=== PATIENT | male | born 1950 | race Caucasian/White ===

== ENCOUNTER 2017-07-04 09:06 | Inpatient (IN) | payer BC ==
[2017-07-04] MEDS ORDERED: BACITRACIN 50000 UNITS INJ (10:33)
[2017-07-04] MEDS ORDERED: POLYMYXIN B 500000 UNIT INJ (10:41)
[2017-07-04] MEDS ORDERED: BUPIVACAINE 0.75%/DEXT (SPINAL) 2 ML INJ (10:42)
[2017-07-04] MEDS ORDERED: CEFAZOLIN 2 GM/50 ML (PMX) 50 ML (FOR WT < 120 KG) IVPB (12:00)
[2017-07-04] MEDS: TRANEXAMIC ACID 1,000 MG in D5W 100 ML AT INCISION X1 IVPB (12:24)
[2017-07-04] MEDS ORDERED: ZOLPIDEM 5 MG TAB PO (12:30)
[2017-07-04] MEDS ORDERED: TRIMETHOBENZAMIDE 100 MG/ML VIAL IM (12:30)
[2017-07-04] MEDS ORDERED: SENNA/DOCUSATE NA (8.6MG/50MG) TAB PO (12:30)
[2017-07-04] MEDS ORDERED: NA PHOSPHATE/BIPHOS 133 ML ENEMA PR (12:30)
[2017-07-04] MEDS ORDERED: BISACODYL 10 MG SUPP PR (12:30)
[2017-07-04] MEDS ORDERED: BETHANECHOL 25 MG TAB PO (12:30)
[2017-07-04] MEDS ORDERED: MAGNESIUM HYDROXIDE 30ML CUP PO (12:30)
[2017-07-04] MEDS ORDERED: KETOROLAC 15 MG INJ INJ (12:30)
[2017-07-04] MEDS ORDERED: NACL 0.9% 3 ML SYG IV (12:30)
[2017-07-04] MEDS ORDERED: DIPHENHYDRAMINE 50 MG INJ IV (12:30)
[2017-07-04] MEDS ORDERED: NALOXONE (0.4 MG/ML) INJ IV (12:30)
[2017-07-04] MEDS ORDERED: CEFAZOLIN 1 GM INJ (14:06)
[2017-07-04] MEDS ORDERED: LIDOCAINE 100 MG SYRINGE (14:06)
[2017-07-04] MEDS ORDERED: SUCCINYLCHOLINE CHLORIDE 100 MG/5 ML SYG IV (14:06)
[2017-07-04] MEDS ORDERED: SUGAMMADEX SODIUM 200 MG/2 ML VIAL IV (14:06)
[2017-07-04] MEDS ORDERED: PROPOFOL 20 ML (14:06)
[2017-07-04] MEDS ORDERED: ROCURONIUM 50 MG INJ (14:06)
[2017-07-04] MEDS: BACITRACIN 50000 UNITS INJ IRR (14:21)
[2017-07-04] MEDS: POLYMYXIN B 500000 UNIT INJ IRR (14:21)
[2017-07-04] MEDS: TRANEXAMIC ACID 1,000 MG in D5W 100 ML AT CLOSURE X1 IVPB (14:23)
[2017-07-04] MEDS: ONDANSETRON 4 MG INJ IV ×3 (14:59→20:17)
[2017-07-04] MEDS ORDERED: MEPERIDINE 25 MG INJ IV (15:00)
[2017-07-04] MEDS ORDERED: HYDROmorphONE (0.2 MG/ML) 10ML SYG IV ×3 (15:00)
[2017-07-04] MEDS ORDERED: FENTAnyl 50 MCG/ML VIAL IV ×2 (15:00)
[2017-07-04] MEDS: METOCLOPRAMIDE 10 MG INJ IV (15:02)
[2017-07-04] MEDS: ASPIRIN (EC) 325 MG TAB PO (15:05)
[2017-07-04] MEDS: CEFAZOLIN 1 GM/50 ML (PMX) 50 ML IVPB ×2 (15:05→23:30)
[2017-07-04] MEDS: DOCUSATE SODIUM 100 MG CAP PO (15:06)
[2017-07-04] MEDS: SOD CHLORIDE 0.9% 1,000 ML IV (15:06)
[2017-07-04] MEDS: DIPHENHYDRAMINE 50 MG INJ IV (15:09)
[2017-07-04] MEDS ORDERED: ONDANSETRON 4 MG INJ IV (15:30)
[2017-07-04] MEDS ORDERED: LORAZEPAM 0.5 MG TAB PO (15:30)
[2017-07-04] MEDS ORDERED: HYDROCODONE/APAP (10/325) TAB PO (15:30)
[2017-07-04] MEDS ORDERED: morphine 2 MG INJ IV (15:30)
[2017-07-04] MEDS: ACETAMINOPHEN 1000MG/100ML IV 100 ML IVPB (15:57)
[2017-07-04] MEDS ORDERED: morphine LIQ (10 MG/5 ML) CUP PO (16:00)
[2017-07-04] MEDS: ATORVASTATIN 10 MG TAB PO (20:17)
[2017-07-04] MEDS: GABAPENTIN 100 MG CAP PO (20:17)
[2017-07-04] MEDS: traMADol 50 MG TAB PO ×2 (20:21→23:54)
[2017-07-04] MEDS: QUETIAPINE 25 MG TAB PO (21:08)
[2017-07-05] MEDS: SOD CHLORIDE 0.9% 1,000 ML IV ×2 (03:00→16:00)
[2017-07-05] MEDS: ONDANSETRON 4 MG INJ IV ×2 (03:30→09:02)
[2017-07-05] MEDS: PANTOPRAZOLE (EC) 40 MG TAB PO (05:28)
[2017-07-05] MEDS: traMADol 50 MG TAB PO ×4 (05:28→18:10)
[2017-07-05] MEDS: LOSARTAN 50 MG TAB PO (09:00)
[2017-07-05] MEDS ORDERED: CELECOXIB 200 MG CAP PO (09:00)
[2017-07-05] MEDS ORDERED: NON-FORMULARY/PATIENT OWN MED (Omeprazole* 40 MG) PO (09:00)
[2017-07-05] MEDS: DOCUSATE SODIUM 100 MG CAP PO ×2 (09:02→20:24)
[2017-07-05] MEDS: ASPIRIN (EC) 325 MG TAB PO (09:02)
[2017-07-05] MEDS: FERROUS FUMARATE (SR) TAB PO ×2 (09:02→21:00)
[2017-07-05] MEDS: CEFAZOLIN 1 GM/50 ML (PMX) 50 ML IVPB (09:02)
[2017-07-05] MEDS: GABAPENTIN 100 MG CAP PO ×3 (09:02→20:24)
[2017-07-05 13:11] LABS: ADD MAN DIFF? NO
[2017-07-05 13:39] LABS: ANION GAP 15 (8-16); BLOOD UREA NITROGEN 15 mg/dl (7-20); CALCIUM 8.4 mg/dl (8.4-10.2); CARBON DIOXIDE 25 mmol/L (21-31); CHLORIDE 104 mmol/L (97-110); CREATININE 1.16 mg/dl (0.61-1.24); GLUCOSE 95 mg/dl (70-220); POTASSIUM 4.6 mmol/L (3.5-5.1); SODIUM 139 mmol/L (135-144)
[2017-07-05] MEDS: CELECOXIB 100 MG CAP PO ×2 (13:45→21:00)
[2017-07-05 13:52] LABS: BASOPHILS % 0.1 % (0.0-2.0); HEMATOCRIT 28.3 % (42.0-52.0); HEMOGLOBIN 9.5 g/dl (14.0-18.0); LYMPHOCYTES # 0.9 10^3/ul (0.8-2.9); MEAN CORPUSCULAR HEMOGLOBIN 30.8 pg (29.0-33.0); MEAN CORPUSCULAR HGB CONC 33.6 g/dl (32.0-37.0); MEAN CORPUSCULAR VOLUME 91.9 fl (82.0-101.0); MEAN PLATELET VOLUME 10.9 fl (7.4-10.4); MONOCYTE # 0.9 10^3/ul (0.3-0.9); MONOCYTES % 13.4 % (0.0-11.0); NEUTROPHIL # 4.9 10^3/ul (1.6-7.5); NEUTROPHILS % 73.2 % (39.0-77.0); PLATELET COUNT 174 10^3/UL (140-415); RED BLOOD COUNT 3.08 10^6/ul (4.70-6.10); RED CELL DISTRIBUTION WIDTH 12.3 % (11.5-14.5)
[2017-07-05 13:52] LABS: WHITE BLOOD COUNT 6.7 10^3/ul (4.8-10.8)
[2017-07-05] MEDS: QUETIAPINE 25 MG TAB PO (20:24)
[2017-07-05] MEDS: ATORVASTATIN 10 MG TAB PO (20:24)
[2017-07-06] MEDS: SOD CHLORIDE 0.9% 1,000 ML IV (04:25)
[2017-07-06] MEDS: PANTOPRAZOLE (EC) 40 MG TAB PO (04:27)
[2017-07-06 08:56] LABS: ADD MAN DIFF? NO
[2017-07-06 09:00] LABS: WHITE BLOOD COUNT 6.7 10^3/ul (4.8-10.8)
[2017-07-06 09:00] LABS: BASOPHILS % 0.2 % (0.0-2.0); HEMATOCRIT 26.8 % (42.0-52.0); HEMOGLOBIN 9.1 g/dl (14.0-18.0); LYMPHOCYTES # 1.3 10^3/ul (0.8-2.9); LYMPHOCYTES % 18.8 % (15.0-51.0); MEAN CORPUSCULAR HEMOGLOBIN 31.4 pg (29.0-33.0); MEAN CORPUSCULAR VOLUME 92.4 fl (82.0-101.0); MEAN PLATELET VOLUME 10.8 fl (7.4-10.4); MONOCYTES % 15.2 % (0.0-11.0); NEUTROPHIL # 4.4 10^3/ul (1.6-7.5); NEUTROPHILS % 65.6 % (39.0-77.0); PLATELET COUNT 155 10^3/UL (140-415); RED CELL DISTRIBUTION WIDTH 12.3 % (11.5-14.5)
[2017-07-06] MEDS: DOCUSATE SODIUM 100 MG CAP PO ×2 (09:11→20:57)
[2017-07-06] MEDS: ASPIRIN (EC) 325 MG TAB PO (09:12)
[2017-07-06] MEDS: GABAPENTIN 100 MG CAP PO ×2 (09:12→13:20)
[2017-07-06] MEDS: FERROUS FUMARATE (SR) TAB PO ×2 (09:12→20:56)
[2017-07-06] MEDS: CELECOXIB 100 MG CAP PO ×2 (09:12→20:56)
[2017-07-06 09:21] LABS: ANION GAP 13 (8-16); BLOOD UREA NITROGEN 10 mg/dl (7-20); CALCIUM 8.4 mg/dl (8.4-10.2); CARBON DIOXIDE 24 mmol/L (21-31); CHLORIDE 108 mmol/L (97-110); CREATININE 0.97 mg/dl (0.61-1.24); GLUCOSE 99 mg/dl (70-220); POTASSIUM 3.9 mmol/L (3.5-5.1); SODIUM 141 mmol/L (135-144)
[2017-07-06 09:30] LABS: MAGNESIUM 1.8 mg/dl (1.7-2.5)
[2017-07-06 09:30] LABS: PHOSPHORUS 2.7 mg/dl (2.5-4.9)
[2017-07-06] MEDS: SOD CHLORIDE 0.45% 1,000 ML IV (17:40)
[2017-07-06] MEDS: ATORVASTATIN 10 MG TAB PO (20:57)
[2017-07-06] MEDS: QUETIAPINE 25 MG TAB PO (20:57)
[2017-07-06 22:11] LABS: B-TYPE NATRIURETIC PEPTIDE 345 PG/ML (0-125)
[2017-07-07 01:27] LABS: ADD UMIC NO; UR ASCORBIC ACID NEGATIVE (NEGATIVE); UR BILIRUBIN (Dip) NEGATIVE (NEGATIVE); UR BLOOD (Dip) NEGATIVE (NEGATIVE); UR CLARITY CLEAR (CLEAR); UR COLOR YELLOW (YELLOW); UR GLUCOSE (Dip) NEGATIVE (NEGATIVE); UR KETONES (Dip) NEGATIVE (NEGATIVE); UR LEUKOCYTE ESTERASE (Dip) NEGATIVE Leu/ul (NEGATIVE); UR NITRITE (Dip) NEGATIVE (NEGATIVE); UR SPECIFIC GRAVITY (Dip) 1.009 (1.003-1.030); UR TOTAL PROTEIN (Dip) NEGATIVE (NEGATIVE); UR UROBILINOGEN (Dip) NEGATIVE (NEGATIVE)
[2017-07-07 01:32] LABS: TROPONIN-I < 0.012 ng/ml (0.00-0.12)
[2017-07-07] MEDS: PANTOPRAZOLE (EC) 40 MG TAB PO (06:42)
[2017-07-07] MEDS: SOD CHLORIDE 0.45% 1,000 ML IV (06:42)
[2017-07-07 09:06] LABS: ADD MAN DIFF? NO
[2017-07-07 09:17] LABS: BASOPHILS % 0.3 % (0.0-2.0); HEMATOCRIT 28.6 % (42.0-52.0); HEMOGLOBIN 9.6 g/dl (14.0-18.0); LYMPHOCYTES % 13.1 % (15.0-51.0); MEAN CORPUSCULAR HEMOGLOBIN 30.9 pg (29.0-33.0); MEAN CORPUSCULAR HGB CONC 33.6 g/dl (32.0-37.0); MEAN PLATELET VOLUME 10.7 fl (7.4-10.4); MONOCYTE # 0.7 10^3/ul (0.3-0.9); MONOCYTES % 8.8 % (0.0-11.0); NEUTROPHIL # 5.9 10^3/ul (1.6-7.5); NEUTROPHILS % 77.4 % (39.0-77.0); PLATELET COUNT 193 10^3/UL (140-415); RED BLOOD COUNT 3.11 10^6/ul (4.70-6.10); RED CELL DISTRIBUTION WIDTH 12.3 % (11.5-14.5)
[2017-07-07 09:17] LABS: WHITE BLOOD COUNT 7.6 10^3/ul (4.8-10.8)
[2017-07-07 09:33] LABS: ANION GAP 17 (8-16); BLOOD UREA NITROGEN 10 mg/dl (7-20); CALCIUM 9.2 mg/dl (8.4-10.2); CARBON DIOXIDE 25 mmol/L (21-31); CHLORIDE 105 mmol/L (97-110); CREATININE 1.02 mg/dl (0.61-1.24); GLUCOSE 100 mg/dl (70-220); HDL CHOLESTEROL 61 mg/dl (31-75); LDL CHOLESTEROL,CALCULATED 48 mg/dl; POTASSIUM 4.1 mmol/L (3.5-5.1); SODIUM 143 mmol/L (135-144); TRIGLYCERIDES 97 mg/dl (0-149)
[2017-07-07 09:33] LABS: CHOLESTEROL 128 mg/dl (100-200)
[2017-07-07 09:47] LABS: TROPONIN-I < 0.012 ng/ml (0.00-0.12)
[2017-07-07] MEDS: DOCUSATE SODIUM 100 MG CAP PO (10:22)
[2017-07-07] MEDS: CELECOXIB 100 MG CAP PO (10:23)
[2017-07-07] MEDS: ASPIRIN (EC) 325 MG TAB PO (10:23)
[2017-07-07] MEDS: FERROUS FUMARATE (SR) TAB PO (10:23)
[2017-07-07 15:39] LABS: TROPONIN-I < 0.012 ng/ml (0.00-0.12)
== END 2017-07-07 19:20 | disposition home health service (06) | DRG 462 ==
LOC: REC 09:06 → MS4 07-05 17:44 → MS1 16:20
PROC: 0SRB04A Replacement of Left Hip Joint with Ceramic on Polyethylene Synthetic Substitute, Uncemented, Open Approach (ICD-10-PCS; principal; 2017-07-04 10:30)
PROC: 0SR904A Replacement of Right Hip Joint with Ceramic on Polyethylene Synthetic Substitute, Uncemented, Open Approach (ICD-10-PCS; 2017-07-04 10:30)
DX: M16.0 Bilateral primary osteoarthritis of hip (principal); I10 Essential (primary) hypertension; E78.5 Hyperlipidemia, unspecified; K21.9 Gastro-esophageal reflux disease without esophagitis; I95.1 Orthostatic hypotension; R00.2 Palpitations; D64.9 Anemia, unspecified; F99 Mental disorder, not otherwise specified
CPT/HCPCS: 70450; 71045; 72170; 80048; 80061; 81003; 83735; 83880; 84100; 84484; 85025; 86850; 86900; 86901; 86920; 87081; 87086; 88304; 88311; 93005; 93306; 97110; 97116; 97162; 97166; 97530; 97535